=== PATIENT | male | born 1980 | race Caucasian/White ===

== ENCOUNTER 2017-06-14 20:40 | Emergency (ER) | payer BC ==
[2017-06-14 20:55] VITALS: TEMP 98.2; BMI 37.5
--- NOTE | 2017-06-14 20:57 | PDOC ---
Rapid Medical Evaluation Time Seen by Provider: 06/14/17 20:54 Medical Evaluation: 06/14/17 20:54 I have performed a brief in-person evaluation of this patient. The patient presents with a chief complaint of: Facial numbness Pertinent physical exam findings: I have ordered the following: cbc, cmp, pt/inr, ptt, ekg, head CT w/o contrast, cardiac labs, urinalysis. The patient will proceed to the ED for further evaluation. Patient states symptoms began this morning 0800.
[2017-06-14 21:39] LABS: BASOPHIL 0.8 % (0-2.0); EOSINOPHIL 3.2 % (0-4.5); MCH 28.7 pg (25.7-33.7); MCHC 32.6 g/dl (32.0-35.9); MEAN CELL VOLUME 87.9 fl (80-96); MEAN PLT VOLUME 8.9 fl (7.5-11.1); NEUTROPHILS 56.9 % (42.8-82.8); PLATELET COUNT 195 K/MM3 (134-434); RDW 13.1 % (11.9-15.9); WHITE BLOOD COUNT 5.7 K/mm3 (4.0-10.0)
[2017-06-14 22:11] LABS: ALBUMIN 4.1 g/dl (3.4-5.0); ANION GAP 5 (8-16); BILIRUBIN,TOTAL 0.4 mg/dL (0.2-1.0); CALCIUM 8.7 mg/dL (8.5-10.1); CO2 28 mmol/L (21-32); CREATININE 1.1 mg/dL (0.7-1.3); GLUCOSE,RANDOM 123 mg/dL (74-106); SGOT/AST 32 U/L (15-37); SGPT/ALT 71 U/L (12-78); TOT PROT 7.4 g/dl (6.4-8.2)
[2017-06-14 22:13] LABS: INR 1.02 (0.82-1.09); PROTHROMBIN TIME (PATIENT) 11.5 SEC (9.98-11.88)
[2017-06-14 22:16] LABS: ACTIVATED PTT 32.5 SECONDS (26.9-34.4)
[2017-06-14 22:19] LABS: ALK PHOS 110 U/L (45-117); CPK 560 IU/L (39-308); THYROID STIMULATING HORMONE 1.59 uIU/ml (0.358-3.74); TROPONIN I < 0.02 ng/ml (0.00-0.05)
[2017-06-14] MEDS ORDERED: methylPREDNISolone NA SUCC 125 MG/2 ML VIAL ONE (23:16)
--- NOTE | 2017-06-15 00:48 | PDOC ---
History of Present Illness - General History Source: Patient Exam Limitations: No Limitations - History of Present Illness Initial Comments: 06/15/17 01:13 Patient is a 36 year old male with a significant past medical history of bells palsy who presents to the ED with complaints of left sided numbness that began this morning. Patient reports left sided lip numbness that was noticed when brushing his teeth. He reports experiencing slight tearing on right side of face but is unsure if it is related to facial numbness. Patient reports last check up was 3 months ago in the [place]. Denies chest pain, SOB. Denies fever, chills. Denies nausea, vomiting. Denies dizziness, lightheadedness. Denies any other symptoms. Allergies: None Social history: No smoking. No alcohol. No illicit drugs. Surgical history:None PMD: None <Papito Sosa - Last Filed: 06/15/17 01:13> <Ricarda Linares - Last Filed: 06/15/17 01:51> - General Stated Complaint: FACIAL NUMBNESS Time Seen by Provider: 06/14/17 21:10 Past History <Papito Sosa - Last Filed: 06/15/17 01:13> - Past Medical History COPD: No Other medical history: denies - Suicide/Smoking/Psychosocial Hx Smoking History: Never smoked <Ricarda Linares - Last Filed: 06/15/17 01:51> - Past Medical History Allergies/Adverse Reactions: Allergies Allergy/AdvReac Type Severity Reaction Status Date / Time No Known Allergies Allergy Verified 06/14/17 20:55 Home Medications: Ambulatory Orders Hypromellose 0.5% Opth Soln [Artificial Tears] 1 - 2 drop OD QID #1 dropsbtl Mineral Oil/Petrolatum,White [Lubricant Pm Eye Ointment] 3.5 gm OD HS #1 oint...g. MDD once 06/15/17 Prednisone [Deltasone -] 60 mg PO DAILY #23 tablet 06/15/17 Valacyclovir HCl [Valtrex -] 500 mg PO BID #14 tablet 06/15/17 Review of Systems - Review of Systems Able to Perform ROS?: Yes Comments:: 06/15/17 01:13 CONSTITUTIONAL: Absent: fever, chills, diaphoresis, generalized weakness, malaise, loss of appetite HEENT: +Left facial numbness +Right eye tearing Absent: rhinorrhea, nasal congestion, throat pain, throat swelling, difficulty swallowing, mouth swelling, ear pain, eye pain, visual Changes CARDIOVASCULAR: Absent: chest pain, syncope, palpitations, irregular heart rate, lightheadedness , peripheral edema RESPIRATORY: Absent: cough, shortness of breath, dyspnea with exertion, orthopnea, wheezing, stridor, hemoptysis GASTROINTESTINAL: Absent: abdominal pain, abdominal distension, nausea, vomiting, diarrhea, constipation, melena, hematochezia GENITOURINARY: Absent: dysuria, frequency, urgency, hesitancy, hematuria, flank pain, genital pain MUSCULOSKELETAL: Absent: myalgia, arthralgia, joint swelling SKIN: Absent: rash, itching, pallor HEMATOLOGIC/IMMUNOLOGIC: Absent: easy bleeding, easy bruising, lymphadenopathy, frequent infections ENDOCRINE: Absent: unexplained weight gain, unexplained weight loss, heat intolerance, cold intolerance NEUROLOGIC: Absent: headache, focal weakness or paresthesias, dizziness, unsteady gait, seizure, mental status changes, bladder or bowel incontinence PSYCHIATRIC: Absent: anxiety, depression, suicidal or homicidal ideation, hallucinations. All Other Systems: Reviewed and Negative <Papito Sosa - Last Filed: 06/15/17 01:13> *Physical Exam - Vital Signs Last Vital Signs Temp Pulse Resp BP Pulse Ox 98.2 F 96 H 18 160/98 99 06/14/17 20:52 06/14/17 20:52 06/14/17 20:52 06/14/17 20:52 06/14/17 20:52 - Physical Exam Comments: 06/15/17 01:14 GENERAL: Well developed, well nourished. Awake and alert. No acute distress. HEENT: +Deficit when smiling on right. +Tearing from right eye. atraumatic. PERRLA, EOMI. No conjunctival pallor. Sclera are non-icteric. Moist mucous membranes. Oropharynx is clear. NECK: Supple. Full ROM. No JVD. Carotid pulses 2+ and symmetric, without bruits. No thyromegaly. No lymphadenopathy. CARDIOVASCULAR: Regular rate and rhythm. No murmurs, rubs, or gallops. Distal pulses are 2+ and symmetric. PULMONARY: No evidence of respiratory distress. Lungs clear to auscultation bilaterally. No wheezing, rales or rhonchi. ABDOMINAL: Soft. Non-tender. Non-distended. No rebound or guarding. No organomegaly. Normoactive bowel sounds. MUSCULOSKELETAL Normal range of motion at all joints. No bony deformities or tenderness. No CVA tenderness. EXTREMITIES: No cyanosis. No clubbing. No edema. No calf tenderness. SKIN: Warm and dry. Normal capillary refill. No rashes. No jaundice. NEUROLOGICAL: Alert, awake, appropriate. Cranial nerves 2-12 intact. No deficits to light touch and temperature in face, upper extremities and lower extremities. No motor deficits in the in face, upper extremities and lower extremities. Normoreflexic in the upper and lower extremities. Normal speech. Toes are down-going bilaterally. PSYCHIATRIC: Cooperative. Good eye contact. Appropriate mood and affect. <Papito Sosa - Last Filed: 06/15/17 01:13> - Vital Signs Last Vital Signs Temp Pulse Resp BP Pulse Ox 98.2 F 96 H 18 160/98 99 06/14/17 20:52 06/14/17 20:52 06/14/17 20:52 06/14/17 20:52 06/14/17 20:52 <Ricarda Linares - Last Filed: 06/15/17 01:51> ED Treatment Course - LABORATORY CBC & Chemistry Diagram: 06/14/17 21:30 06/14/17 21:30 - ADDITIONAL ORDERS Additional order review: Laboratory Results 06/14/17 06/14/17 21:30 21:30 PT with INR 11.50 INR 1.02 PTT (Actin FS) 32.5 Sodium 140 Potassium 3.8 Chloride 107 Carbon Dioxide 28 Anion Gap 5 L BUN 17 Creatinine 1.1 Creat Clearance w eGFR > 60 Random Glucose 123 H Calcium 8.7 Total Bilirubin 0.4 AST 32 ALT 71 Alkaline Phosphatase 110 Creatine Kinase 560 H Creatine Kinase Index 0.6 CK-MB (CK-2) 3.682 H Troponin I < 0.02 Total Protein 7.4 Albumin 4.1 TSH 1.59 06/14/17 21:30 RBC 4.87 MCV 87.9 MCHC 32.6 RDW 13.1 MPV 8.9 Neutrophils % 56.9 Lymphocytes % 29.6 Monocytes % 9.5 Eosinophils % 3.2 Basophils % 0.8 <Papito Sosa - Last Filed: 06/15/17 01:13> - LABORATORY CBC & Chemistry Diagram: 06/14/17 21:30 06/14/17 21:30 - ADDITIONAL ORDERS Additional order review: Laboratory Results 06/14/17 06/14/17 21:30 21:30 PT with INR 11.50 INR 1.02 PTT (Actin FS) 32.5 Sodium 140 Potassium 3.8 Chloride 107 Carbon Dioxide 28 Anion Gap 5 L BUN 17 Creatinine 1.1 Creat Clearance w eGFR > 60 Random Glucose 123 H Calcium 8.7 Total Bilirubin 0.4 AST 32 ALT 71 Alkaline Phosphatase 110 Creatine Kinase 560 H Creatine Kinase Index 0.6 CK-MB (CK-2) 3.682 H Troponin I < 0.02 Total Protein 7.4 Albumin 4.1 TSH 1.59 06/14/17 21:30 RBC 4.87 MCV 87.9 MCHC 32.6 RDW 13.1 MPV 8.9 Neutrophils % 56.9 Lymphocytes % 29.6 Monocytes % 9.5 Eosinophils % 3.2 Basophils % 0.8 <Ricarda Linares - Last Filed: 06/15/17 01:51> *DC/Admit/Observation/Transfer - Attestations Scribe Attestion: 06/15/17 01:14 Documentation prepared by Papito Sosa, acting as medical review specialist for Ricarda Linares MD/. <Papito Sosa - Last Filed: 06/15/17 01:13> <Ricarda Linares - Last Filed: 06/15/17 01:51> Diagnosis at time of Disposition: Eagle palsy - Discharge Dispostion Disposition: HOME Condition at time of disposition: Stable - Prescriptions Prescriptions: Hypromellose 0.5% Opth Soln [Artificial Tears] 1 - 2 drop OD QID #1 dropsbtl Mineral Oil/Petrolatum,White [Lubricant Pm Eye Ointment] 3.5 gm OD HS #1 oint...g. MDD once Prednisone [Deltasone -] 60 mg PO DAILY #23 tablet Valacyclovir HCl [Valtrex -] 500 mg PO BID #14 tablet - Referrals Referrals: Neri Lanza DO [Staff Physician] - Janusz Greer MD [Staff Physician] - Jeanmarie Gutierrez MD [Staff Physician] - - Patient Instructions Printed Discharge Instructions: DI for Eagle's Palsy Additional Instructions: please take your prednisone as directed Use artificial tears in the affected eye at least 4 times daily and AT NIGHT apply the eye ointment and either tape the eye closed or use an eye patch Do not patch the eye during the day Follow up with the neurologist and the eye doctor Return for any worsening symptoms Your LYME TEST is still pending
[2017-06-15] MEDS ORDERED: predniSONE 20 MG TABLET (UD) PO ONE (01:11)
[2017-06-15] MEDS ORDERED: predniSONE 20 MG TABLET (UD) ONE (01:11)
[2017-06-15 02:02] VITALS: BP 144/89; PULSE 88
== END 2017-06-15 02:02 | disposition home or self-care (01) ==
LOC: JER 20:40
DX: G51.0 Bell's palsy (principal)
CPT/HCPCS: 36415; 70450-TC; 80053; 82550; 82553; 84443; 84484; 85025; 85610; 85730; 86618; 99282-25